=== PATIENT | female | born 1945 | race Caucasian/White ===

== ENCOUNTER 2018-04-14 10:40 | Outpatient (CLI) | payer OTHER ==
[~2018-04-14 10:40] MED LIST: ORPH100T PO; PERCOCET 5/3251 TAB PO
== END 2018-04-14 10:48 | disposition home or self-care (01) ==
LOC: RAD 10:40
DX: M54.5 Low back pain (principal)

== ENCOUNTER → 2019-09-15 | Outpatient (CLI) | payer OTHER | END | disposition home or self-care (01) | LOC: TOM 07:45 | DX: K56.690 Other partial intestinal obstruction (principal) ==